=== PATIENT | male | born 2000 ===

== ENCOUNTER 2018-10-29 13:41 | Emergency (ER) | payer MEDICAID, OTHER ==
--- NOTE | 2018-10-29 14:47 | ED PDOC ---
Arrival/HPI - General Chief Complaint: Flu-like Symptoms Time Seen by Provider: 10/29/18 13:45 - History of Present Illness Narrative History of Present Illness (Text): 18 y/o with no significant PMH presents to the ED c/o cough and congestion x 1 week. Cough is productive of yellow sputum. Associated intermittent subjective fever, burning anterior chest pain only while coughing, and one episode of a small amount of pink sputum on the tissue when coughing. Tolerating PO per baseline. Current some days tobacco smoker. No recent travel or sick contacts. Denies back pain, SOB, dizziness, headache, neck pain/stiffness, vision changes, abdominal pain, nausea, vomiting, diarrhea, or any other associated complaints. Past Medical History - Provider Review Nursing Documentation Reviewed: Yes - Psychiatric Hx Substance Use: No - Anesthesia Hx Anesthesia: Yes Hx Anesthesia Reactions: No Hx Malignant Hyperthermia: No Family/Social History - Physician Review Nursing Documentation Reviewed: Yes Family/Social History: No Known Family HX Smoking Status: Light Smoker < 10 Cigarettes Daily Hx Alcohol Use: No Hx Substance Use: No Allergies/Home Meds Allergies/Adverse Reactions: Allergies No Known Allergies Allergy (Verified 10/29/18 13:51) Review of Systems - Review of Systems Constitutional: Fatigue, Fevers Eyes: Normal. absent: Vision Changes ENT: Sore Throat, Sinus Congestion Respiratory: Cough, Sputum. absent: SOB Cardiovascular: Chest Pain. absent: Palpitations Gastrointestinal: Normal. absent: Abdominal Pain, Stool Changes, Nausea, Vomiting, Appetite Changes Genitourinary Male: Normal. absent: Dysuria, Frequency Musculoskeletal: Normal. absent: Arthralgias, Back Pain, Neck Pain Skin: Normal. absent: Rash Neurological: Normal. absent: Headache, Dizziness Endocrine: Normal Hemo/Lymphatic: Normal Psychiatric: Normal Physical Exam Vital Signs Reviewed: Yes Temperature: Afebrile Blood Pressure: Normal Pulse: Regular Respiratory Rate: Normal Appearance: Positive for: Well-Appearing, Non-Toxic, Comfortable Pain Distress: None Mental Status: Positive for: Alert and Oriented X 3 - Systems Exam Head: Present: Atraumatic, Normocephalic Pupils: Present: PERRL Extroacular Muscles: Present: EOMI Conjunctiva: Present: Normal Ears: Present: Normal, NORMAL TM, Normal Canal Mouth: Present: Moist Mucous Membranes Pharnyx: Present: Normal. No: ERYTHEMA, EXUDATE, TONSILS ENLARGED Neck: Present: Normal Range of Motion. No: Meningeal Signs Respiratory/Chest: Present: Clear to Auscultation, Good Air Exchange, Tender to Palpation (over sternum). No: Respiratory Distress, Accessory Muscle Use Cardiovascular: Present: Regular Rate and Rhythm, Normal S1, S2, Peripheal Pulses Present. No: Murmurs Abdomen: Present: Normal Bowel Sounds. No: Tenderness, Distention, Peritoneal Signs, Rebound, Guarding Back: Present: Normal Inspection. No: CVA Tenderness, Paraspinal Tenderness Upper Extremity: Present: Normal Inspection, Normal ROM, NORMAL PULSES, Neurovascularly Intact, Capillary Refill < 2s. No: Cyanosis, Edema, Temperature Abnormalties Lower Extremity: Present: Normal ROM. No: Edema Neurological: Present: GCS=15, CN II-XII Intact, Speech Normal, Motor Func Grossly Intact, Normal Sensory Function, Gait Normal Skin: Present: Warm, Dry, Normal Color. No: Rashes Psychiatric: Present: Alert, Oriented x 3, Normal Insight, Normal Concentration, Normal Affect, Normal Mood Medical Decision Making ED Course and Treatment: Initial Plan: * CXR * Rapid Strep * Rapid Flu Rapid strep and flu negative CXR negative for active disease WIll prescribe Z-matt secondary to smoking history. Advised PMD followup and supportive care. Diagnostic testing results and plan of care discussed with patient. Strict instructions given regarding prescription use, importance of followup, and signs/symptoms to return to ER including worsening pain, SOB, or any other new/worsening symptoms. Pt verbalized understanding of discussion. Patient is A&Ox3, ambulating with steady gait, with vital signs stable for discharge. - RAD Interpretation Radiology Orders: 10/29/18 14:04 CXR (PA/LAT) [CHEST TWO VIEWS (PA/LAT)] [RAD] Stat Disposition/Present on Arrival - Present on Arrival Any Indicators Present on Arrival: No History of DVT/PE: No History of Uncontrolled Diabetes: No Urinary Catheter: No History of Decub. Ulcer: No History Surgical Site Infection Following: None - Disposition Have Diagnosis and Disposition been Completed?: Yes Diagnosis: Lower respiratory tract infection Disposition: HOME/ ROUTINE Disposition Time: 15:45 Patient Plan: Discharge Condition: STABLE Discharge Instructions (ExitCare): Acute Bronchitis Additional Instructions: Tessalon perles every 8 hours as needed for cough Z-matt daily as directed Ibuprofen/tylenol for fever Increase fluids Rest, no strenuous activity Followup with clinic within 2 days Return to ER with any new/worsening symptoms Prescriptions: Azithromycin [Z-Matt] 250 mg PO DAILY #6 tab Benzonatate [Tessalon Perle] 100 mg PO Q8H PRN #15 capsule PRN Reason: Cough Referrals: [facility] [place] [Outside] - Follow up with primary Radha Kenney MD [Medical Doctor] - Follow up with primary Forms: [facility] (Irish), WORK NOTE
[2018-10-29 14:48] LABS: INFLUENZA A B NEGATIVE FOR FLU A/B (NEGATIVE)
[2018-10-29 14:57] VITALS: TEMP 97.8; O2SAT 99
--- NOTE | 2018-10-29 15:16 | RAD ---
Date of service: 10/29/2018 HISTORY: cough, fever COMPARISON: No prior. TECHNIQUE: Chest PA and lateral FINDINGS: LUNGS: No active pulmonary disease. PLEURA: No significant pleural effusion identified. No pneumothorax apparent. CARDIOVASCULAR: No aortic atherosclerotic calcification present. Normal cardiac size. No pulmonary vascular congestion. OSSEOUS STRUCTURES: No significant abnormalities. VISUALIZED UPPER ABDOMEN: Normal. OTHER FINDINGS: None. IMPRESSION: No active disease.
[2018-10-29 16:40] VITALS: BP 110/71; PULSE 80; RESP 18
== END 2018-10-29 16:38 | disposition home or self-care (01) ==
LOC: ED 13:41
DX: J22 Unspecified acute lower respiratory infection (principal); F17.210 Nicotine dependence, cigarettes, uncomplicated